=== PATIENT | male | born 1960 | race Caucasian/White ===

== ENCOUNTER → 2020-07-05 11:03 | Outpatient (CLI) | payer BC, SELFPAY ==
--- NOTE | ~2020-07-05 | MR_ITS ---
EXAMINATION: MR knee RT wo con DATE: 07/05/2020 11:58 INDICATION: Right knee pain TECHNIQUE: Magnetic resonance imaging (MRI) of the right knee was performed without intravenous contr ast. Sequences included coronal PD-weighted FSE, coronal PD-weighted FS FSE, sagittal T2-weighted FS E, sagittal PD-weighted FS FSE and axial PD weighted fat saturated FSE. COMPARISON: None. FINDINGS: Medial compartment: Longitudinal horizontal tear extending to the inferior articular surface at the mid to peripheral thi rd of the posterior horn and body of the medial meniscus. Suggestion of the tear is mildly complex ne ar the posterior root with likely small anterior meniscal flap extending anteriorly from the lateral most posterior horn. Mild chondral surface regularity along the lateral side of the central weightbea ring medial femoral condyle. Lateral compartment: Lateral meniscus is normal. Articular cartilage is normal. Patellofemoral compartment: Deep chondral ulceration with mild subarticular edema at the cephalad aspect of the patellar apical r idge. And extending obliquely from superolateral to inferomedial across the medial patellar facet. Ti ny central subchondral osteophyte along the inferior medial facet. Less severe mild chondral surface irregularity at the lateral patellar facet. Deep chondral fissuring along the inferolateral aspect of the medial trochlea. Ligaments and tendons: Anterior and posterior cruciate ligaments are normal. The medial collateral ligament and fibular tonya ateral ligament complex are normal. Mild tendinopathy at the distal quadriceps tendon. The patellar t endon is normal. The visualized medial and lateral hamstring tendons as well as the iliotibial band a re normal. Fluid: Physiologic amount of fluid in the joint space. No loose osteochondral bodies identified. Trace amoun t fluid in the prepatellar bursa consistent with mild bursitis. Osseous/other: Bone marrow signal is normal aside from the previous noted tiny foci of minimal subarticular edema. N o fracture or pathologic marrow replacing process. There is edema in the superficial suprapatellar fa t pad most prominent medially consistent with fat pad impingement syndrome. IMPRESSION: 1. Longitudinal horizontal tear of the medial meniscal body and posterior horn, potentially complex w ith suggestion of tiny anteriorly displaced meniscal flap arising near the posterior root. 2. Mild medial and patellofemoral osteoarthritis with small regions of moderate grade chondromalacia the medial compartment and more extensive moderate to high-grade chondromalacia in the patellofemoral compartment. 3. Edema in the superficial suprapatellar fat pad consistent with fat pad impingement syndrome. 4. Minimal prepatellar bursitis. Reviewed, dictated and finalized at location A. IMPRESSION: 1. Longitudinal horizontal tear of the medial meniscal body and posterior horn, potentially complex with suggestion of tiny anteriorly displaced meniscal flap arising near the posterior root. 2. Mild medial and patellofemoral osteoarthritis with small regions of moderate grade chondromalacia the medial compartment and more extensive moderate to hig h-grade chondromalacia in the patellofemoral compartment. 3. Edema in the superficial suprapatellar fat pad consistent with fat pad impin gement syndrome. 4. Minimal prepatellar bursitis.
== END ==
PROVIDERS: Visit Provider Nurse Practitioner Family
DX: M71.561 Other bursitis, not elsewhere classified, right knee (principal); S83.241A Other tear of medial meniscus, current injury, right knee, initial encounter; X58.XXXA Exposure to other specified factors, initial encounter; M17.11 Unilateral primary osteoarthritis, right knee
CPT/HCPCS: 73721

== ENCOUNTER 2020-07-16 00:24 | Outpatient (CLI) | payer BC, SELFPAY ==
[2020-07-16 18:28] LABS: SARS-CoV-2 RNA PCR Negative
== END 2020-07-16 00:25 | disposition home or self-care (01) ==
LOC: ANHCOVIDDT 00:25
PROVIDERS: Orthopaedic Surgery; PCP Family Medicine; Visit Provider Orthopaedic Surgery
DX: Z01.812 Encounter for preprocedural laboratory examination (principal); Z20.828 Contact with and (suspected) exposure to other viral communicable diseases
CPT/HCPCS: 87635; C9803; U0003

== ENCOUNTER 2020-07-21 02:07 | Outpatient (CLI) | payer BC, SELFPAY ==
[2020-07-21 16:34] LABS: SARS-CoV-2 RNA PCR Negative
== END 2020-07-21 02:08 | disposition home or self-care (01) ==
LOC: ANHCOVIDDT 02:07
PROVIDERS: PCP Family Medicine; Visit Provider Orthopaedic Surgery
DX: Z01.812 Encounter for preprocedural laboratory examination (principal); Z20.828 Contact with and (suspected) exposure to other viral communicable diseases
CPT/HCPCS: 87635; C9803; U0003

== ENCOUNTER 2020-07-23 01:29 | Day surgery (SDC) | payer BC, SELFPAY ==
[2020-07-14 10:35] VITALS: BMI 28.5
[2020-07-23] VITALS (7 sets, daily range): BP systolic 96–135; BP diastolic 70–89; PULSE 47–69; RESP 12–16; TEMP 36.2–37.1; O2SAT 97–100
--- NOTE | 2020-07-23 07:23 | WPDHPUPDATE1 ---
History and Physical Update Update Date/Time: 07/23/20 07:23 History and Physical has been reviewed, including an updated exam of the patient. There are NO changes in the patient's condition. Risks, benefits, and alternatives have been discussed and questions answered. Patient agrees to proceed with procedure.
[2020-07-23] MEDS: LACTATED RINGERS 1,000 ML 30 ML IV CONT ×2 (12:56→17:33)
[2020-07-23] MEDS: ACETAMINOPHEN 500 MG TABLET 1000 MG PO (12:56)
[2020-07-23] MEDS: CELECOXIB 200 MG CAPSULE PO (12:57)
--- NOTE | 2020-07-23 13:18 | WPDANESEPPF ---
Anes - Initial Pre Proc Eval Procedure: Operation Date: 07/23/20 14:30 Proposed Procedures p Right Knee Arthroscopy, Proceed As Indicated - Navi Hernandez MD Date/Time: 07/23/20 13:18 Surgeon: Navi Hernandez MD Pre Op Diagnosis: right knee medial meniscus tear and chondromylacia Patient Data Age: 59 Gender: M Height: 5 ft 11 in Weight: 92.8 kg Last Vital Signs Temp 37.1 C 07/23/20 12:40 Pulse 65 07/23/20 12:40 Resp 16 07/23/20 12:40 BP 130/81 07/23/20 12:40 Pulse Ox 100 07/23/20 12:40 Allergies Allergy/AdvReac Type Severity Reaction Status Date / Time No Known Allergies Allergy Verified 07/23/20 12:25 Home Medications Medication Instructions Recorded Confirmed Type aspirin 81 mg tablet,delayed 81 mg PO DAILY 06/26/20 07/23/20 History release esomeprazole magnesium 20 mg 20 mg PO DAILY 06/26/20 07/23/20 History tablet,delayed release chlorhexidine gluconate 4 % 1 applic TOPICAL ONCE #237 ml 07/14/20 07/14/20 Rx topical liquid Patient hx anesthesia problems: none Family hx anesthesia problems: none PMFSH Past Medical History Medical History Medial meniscus tear Right knee pain Seasonal allergies Sleep apnea Vision abnormalities Surgical History Surgical History History of arthroscopy of knee History of hand surgery History of repair of anterior cruciate ligament of left knee Family History Family History Grandparent Family history of alcoholism Family history of cardiovascular disease Cerebrovascular accident Family history of hepatitis Father Family history of cardiovascular disease, Onset Age: 44 Acute myocardial infarction, Onset Age: 44 Sibling Family history of kidney disease Family history of Alzheimer's disease Other Hypertension Social History Social History Smoking status: Never smoker Alcohol intake: never Substance use: current Substance use type: marijuana Last use: 07/14/20 Spiritual care concerns: No Anes - Eval Final PreProcedure Day of Procedure 07/23/20 13:18 Patient weight: overweight Heart: regular rate and rhythm Lungs: clear to auscultation Airway: Mallampati scale class II and special considerations poor opening Neurological: alert and oriented Last oral intake: >/= 8 hours ASA classification: III Emergent: no Anesthetic plan: proceed Anesthesia type and monitoring: general LMA and standard monitoring Informed Consent: The patient's anesthetic plan and its attendant risks and benefits were discussed with the patient/family/POA. Questions were solicited and answers provided to the satisfaction of the patient/family/POA.
--- NOTE | 2020-07-23 13:29 | SUR.PREOP ---
Discussed delay with patient. Voices understanding.
--- NOTE | 2020-07-23 13:43 | SUR.PREOP ---
Up to bathroom.
[2020-07-23] MEDS: ceFAZolin 2 GM/D5W 50 ML 2 GM/50 ML BAG IVPB (16:22)
--- NOTE | 2020-07-23 17:31 | PM.PROC ---
Procedure Note - Detailed Date of procedure: 07/23/20 Pre-op diagnosis: right knee medial meniscus tear and chondromylacia Post-op diagnosis: other (medial meniscus tear, lateral meniscus tear, chondromalacia, synovitis) Procedure performed: RIGHT KNEE SCOPE WITH PARTIAL MEDIAL MENISCECTOMY AND MAJOR SYNEVECTOMY Description of procedure: PATIENT WAS TAKEN TO THE OR. THE RIGHT LEG WAS PREPPED AND DRAPED STERILE. TROCARS WERE PLACED IN THE USUAL FASHION. CAMERA WAS INTRODUCED. THERE WAS CHONDROMALACIA TO THE PATELLA FEMORAL JOINT. THERE WAS A LOT OF SYNOVITIS IN ALL COMPARTMENTS. THE MEDIAL COMPARTMENT SHOWED CHONDROMALACIA TO THE MED FEMORAL CONDYLE. A SHAVER WAS USED TO PREFORM A CHONDROPLASTY. THERE WAS A COMPLEX MEDIAL MENISCUS TEAR. THE TEAR EXTENDED FROM THE MENISCAL ROOT TO THE POSTERIOR HORN MAIN BODY. THE TEAR WAS RESECTED WITH A BITER AND A SHAVER DOWN TO A SMOOTH BASE. ABOUT 15% OF THE MENISCUS WAS REMOVED. THE ACL WAS INTACT. THE LATERAL MENISCUS WAS NOT TORN. THE LATERAL COMPARTMENT HAD NO SIGNIFICANT CHONDROMALACIA. THE PATELLO FEMORAL JOINT UNDERWENT CHONDROPLASTY. THERE WAS GRADE 3 CHONDROMALACIA IN MOST OF THE TROCHLEA AND PART OF THE PATELLA. SYNOVECTOMY WAS PREFORMED IN THE SUPERIOR MEDIAL COMPARTMENT AND IN HOFFA'S SYNOVIUM. THE PATELLA TRACKED NORMALLY WITHIN THE TROCHLEA. THE WOUNDS WERE APPROXIMATED WITH 4.0 NYLON. STERILE DRESSING WAS APPLIED. PATIENT WAS EXTUBATED. Anesthesia: GLMA Surgeon: Navi Hernandez MD Estimated blood loss (mL): 5 Complications: No immediate complications Condition: stable Disposition: PACU
== END 2020-07-23 18:55 | disposition home or self-care (01) ==
PROVIDERS: PCP Family Medicine; Visit Provider Orthopaedic Surgery
PROC: (CPT 29870; principal; 2020-07-23 14:30)
DX: M23.321 Other meniscus derangements, posterior horn of medial meniscus, right knee (principal); M65.861 Other synovitis and tenosynovitis, right lower leg; M94.261 Chondromalacia, right knee
CPT/HCPCS: 29881; 29876; A9270; J0690; J1100; J2250; J2405; J2704; J3010; J7120

== ENCOUNTER → 2021-04-13 02:53 | Outpatient (CLI) | payer BC, SELFPAY ==
[2021-04-13 17:43] LABS: SARS-CoV-2 RNA PCR Negative
== END ==
PROVIDERS: PCP Family Medicine; Visit Provider Internal Medicine Gastroenterology
DX: Z01.812 Encounter for preprocedural laboratory examination (principal); Z20.822 Contact with and (suspected) exposure to COVID-19
CPT/HCPCS: C9803; U0003; U0005

== ENCOUNTER 2021-04-16 00:16 | Day surgery (SDC) | payer BC, SELFPAY ==
[2021-04-02 15:14] VITALS: BMI 29.3
[2021-04-16 07:11] VITALS: BP 119/72; PULSE 76; RESP 18; TEMP 35.9; O2SAT 99
[2021-04-16] MEDS: LACTATED RINGERS 1,000 ML 150 ML IV CONT (07:13)
--- NOTE | 2021-04-16 08:13 | WPDGICN ---
GI Consult Note Consult date/time: 04/16/21 08:13 HPI: Reason for visit colonoscopy. This very pleasant gentleman seen in consultation at the request of the primary physician. Impression: Screening colonoscopy. GERD controlled on medication. Kidney stones. BEN. Recommendation: Colonoscopy. History: This very pleasant gentleman is here for screening colonoscopy. His GI review systems is negative. He has history reflux disease well controlled on medication. Physical examination: General: very pleasant patient in no acute distress. HEENT: Head was normocephalic sclerae is clear mouth without masses neck was supple. Heart: Rate rhythm regular without S3 or S4. Lungs: CTA. Abdomen: Soft with no guarding or rigidity. Bowel sounds were active. Neurologic: Cranial nerves 2 through 12 intact. No focal defects. No clonus. Musculoskeletal system: Revealed no joint tenderness or swelling no muscle atrophy. Extremities: Reveal no significant edema. Skin: Warm and dry with normal turgor. Mental status: intact. Patient is alert and oriented. Review of Systems Review of Systems: All systems reviewed & are unremarkable except as noted in HPI and below PMFSH Past Medical History Medical History (Updated 02/26/21 @ 11:44 by Karla Murray [facility]) Esophagitis Kidney stone (~2017) Medial meniscus tear Overweight (BMI 25.0-29.9) Right knee pain Seasonal allergies Sleep apnea Vision abnormalities Surgical History Surgical History History of arthroscopy of knee History of hand surgery History of repair of anterior cruciate ligament of left knee Family History Family History Grandparent Family history of alcoholism Family history of cardiovascular disease Cerebrovascular accident Family history of hepatitis Father Family history of cardiovascular disease, Onset Age: 44 Acute myocardial infarction, Onset Age: 44 Sibling Family history of kidney disease Family history of Alzheimer's disease Other Hypertension Social History Social History Smoking status: Never smoker Alcohol intake: former Alcohol use details: socially in the past, none for one year Substance use: never Substance use type: marijuana Other substance usage details: marijuana nightly Last use: 07/14/20 Living arrangements: alone Gender identity (if verbalized by the patient): Male Spiritual care concerns: No Meds Home Medications and Allergies Home Medications Medication Instructions Recorded Confirmed Type aspirin 81 mg tablet,delayed 81 mg PO DAILY 06/26/20 04/16/21 History release esomeprazole magnesium 20 mg 20 mg PO DAILY 06/26/20 04/16/21 History tablet,delayed release Allergies Allergy/AdvReac Type Severity Reaction Status Date / Time No Known Allergies Allergy Verified 04/16/21 07:08 Vital Signs Vital Signs - 24 hr 04/16/21 07:11 Temperature 35.9 C L Pulse Rate 76 Respiratory Rate 18 Blood Pressure 119/72 Pulse Oximetry 99
--- NOTE | 2021-04-16 08:29 | WPDANESEPPF ---
Anes - Initial Pre Proc Eval Procedure: Operation Date: 04/16/21 08:30 Proposed Procedures p Screening Colonoscopy - Luis Patel DO Date/Time: 04/16/21 08:29 Surgeon: Luis Patel DO Pre Op Diagnosis: neoplasm screening colon Patient Data Age: 60 Gender: M Height: 5 ft 11 in Weight: 86.6 kg Last Vital Signs Temp 96.7 F L 04/16/21 07:11 Pulse 76 04/16/21 07:11 Resp 18 04/16/21 07:11 BP 119/72 04/16/21 07:11 Pulse Ox 99 04/16/21 07:11 Allergies Allergy/AdvReac Type Severity Reaction Status Date / Time No Known Allergies Allergy Verified 04/16/21 07:08 Home Medications Medication Instructions Recorded Confirmed Type aspirin 81 mg tablet,delayed 81 mg PO DAILY 06/26/20 04/16/21 History release esomeprazole magnesium 20 mg 20 mg PO DAILY 06/26/20 04/16/21 History tablet,delayed release Patient hx anesthesia problems: none Family hx anesthesia problems: none PMFSH Past Medical History Medical History (Updated 02/26/21 @ 11:44 by Karla Murray CMA) Esophagitis Kidney stone (~2017) Medial meniscus tear Overweight (BMI 25.0-29.9) Right knee pain Seasonal allergies Sleep apnea Vision abnormalities Surgical History Surgical History History of arthroscopy of knee History of hand surgery History of repair of anterior cruciate ligament of left knee Family History Family History Grandparent Family history of alcoholism Family history of cardiovascular disease Cerebrovascular accident Family history of hepatitis Father Family history of cardiovascular disease, Onset Age: 44 Acute myocardial infarction, Onset Age: 44 Sibling Family history of kidney disease Family history of Alzheimer's disease Other Hypertension Social History Social History Smoking status: Never smoker Alcohol intake: former Alcohol use details: socially in the past, none for one year Substance use: never Substance use type: marijuana Other substance usage details: marijuana nightly Last use: 07/14/20 Living arrangements: alone Gender identity (if verbalized by the patient): Male Spiritual care concerns: No Anes - Eval Final PreProcedure Day of Procedure 04/16/21 08:29 Patient weight: overweight Heart: regular rate and rhythm Lungs: clear to auscultation Airway: Mallampati scale class II Neurological: alert and oriented Last oral intake: >/= 8 hours ASA classification: III Emergent: no Anesthetic plan: proceed Anesthesia type and monitoring: general GIVS and standard monitoring Informed Consent: The patient's anesthetic plan and its attendant risks and benefits were discussed with the patient/family/POA. Questions were solicited and answers provided to the satisfaction of the patient/family/POA.
[2021-04-16 09:20] VITALS: BP 105/69; PULSE 82; RESP 26; O2SAT 97
[2021-04-16 09:30] VITALS: BP 102/66; PULSE 66; RESP 20; O2SAT 100
[2021-04-16 09:40] VITALS: BP 110/71; PULSE 67; RESP 17; O2SAT 100
== END 2021-04-16 09:49 | disposition home or self-care (01) ==
PROVIDERS: PCP Family Medicine; Visit Provider Internal Medicine Gastroenterology
PROC: 0DJD8ZZ Inspection of Lower Intestinal Tract, Via Natural or Artificial Opening Endoscopic (ICD-10-PCS; CPT 45378; principal; 2021-04-16 08:30)
DX: Z12.11 Encounter for screening for malignant neoplasm of colon (principal); K64.8 Other hemorrhoids; K21.9 Gastro-esophageal reflux disease without esophagitis; G47.33 Obstructive sleep apnea (adult) (pediatric); F12.90 Cannabis use, unspecified, uncomplicated; Z79.82 Long term (current) use of aspirin
CPT/HCPCS: 45378; C9803; J2704; J7120; U0003; U0005

== ENCOUNTER → 2025-03-04 15:33 | Outpatient (REF) | payer MEDICARE, SELFPAY ==
--- OUTSIDE RECORDS SUMMARY | 2025-03-04 16:13 | XMS_ITS | Clinical Summary ---
Author Organization [facility] Address [address] [place] [address] Care Team Providers Care Plastics Nurse Name Role Phone Jacinto Gandara MD Primary Care Provider [phone] Jacinto Gandara MD Unavailable [phone] Lianne Zamora Unavailable Allergies No known active allergies Medications esomeprazole DR (NexIUM) 20 mg capsule Take 1 capsule (20 mg total) by mouth daily before breakfast Active HYDROcodone-cem taminophen (NORCO) 5-325 mg per tabletIndicatio ns:Pain Take 1 tablet by mouth every 4 (four) hours as needed for pain Do not take on an empty stomach, no driving after taking 30 tablet Active Active Problems Problem Noted Date Diagnosed Date Acute lateral meniscus tear of left knee 024 Internal derangement of knee involving posterior horn of lateral meniscus, left 04/23/2024 Assessment & Plan (04/23/2024 4:20 PM CDT): By MRI the patient has a tear of the posterior horn of the lateral meniscus as well. The time of her arthroscopy would want to address both tears. Acute medial meniscus tear of left knee 04/02/20 Assessment & Plan (04/23/2024 4:21 PM CDT): By MRI the patient is found have medial and lateral meniscal tears of his left knee. The ACL graft appears to be intact. He does have a bone bruise but no insufficiency fracture. He does not have end-stage arthritis and does not warrant knee replacement surgery as of yet. I would recommend arthroscopy with partial meniscectomy. The risks of knee arthroscopy include incisional numbness, hypersensitive scar, neurovascular compromise, infection, recurrent tearing, persistent pain due to underlying arthritis, medical and anesthetic risks including and is willing to proceed Assessment & Plan (04/02/2024 3:22 PM CDT): The patient may have developed a medial meniscal tear as he is having mechanical locking of the knee with recurrent effusions sharp stabbing pain. His exam was consistent with a medial meniscal tear. Would recommend obtaining an MRI as he did not get any significant response with the cortisone injection in the treatment of his underlying arthritis. If radiographically the patient only has [id number] degenerative changes of the knee. He does have retained hardware and metal suppression we will be needed for the MRI Traumatic arthropathy of knee 11/17/2015 Overview (02/10/2017): Post-traumatic osteoarthritis of left knee Assessment & Plan (03/15/2024 1:21 PM CDT): The patient is developing moderate degenerative changes of the knee with reactive synovitis clinically. He has no evidence of a septic joint or deep vein thrombosis clinically at this time. After reviewing the treatment options he elected undergo a cortisone injection today to the severity of his symptoms. He tolerated the procedure well. If he develops locking recurrent effusions of the knee further workup with an MRI would be indicated. Osteoarthritis of knee 11/17/2015 Overview (02/10/2017): Primary osteoarthritis of right knee Torn cartilage 10/21/2015 Overview (02/10/2017): Acute meniscal tear of left knee, initial encounter Strain of supraspinatus muscle or tendon 014 Overview (02/10/2017): Strain of supraspinatus muscle AND/OR tendon Partial thickness rotator cuff tear 10/21/2014 Overview (02/10/2017): Partial tear of right subscapularis tendon Fracture of multiple ribs 10/21/2014 Overview (02/10/2017): Ribs, multiple fractures Surgical History Surgery Date Site/Laterality Comments ANTERIOR CRUCIATE LIGAMENT REPAIR ACL repair OTHER SURGICAL HISTORY Right hand reconstruction OTHER SURGICAL HISTORY elbow release HERNIA REPAIR Hernia repair KNEE ARTHROSCOPY 05/18/2024 Left Medical History Medical History Date Comments Arthritis Arthritis; Comme nts: JKD 10/21/2014 - GERD (gastroesophageal reflux disease) Acute medial meniscus tear of left knee Acute medial meniscus tear of left knee Family History Medical History Relation Name Comments Heart attack Brother 1 No Known Problems Brother 2 No Known Problems Brother 3 No Known Problems Brother 4 Heart attack Father Myocardial infa rction; Hyperlipidemia Father High choleste rol; Hypertension Father Hypertension; No Known Problems Mother kidney transplant Sister 1 Frontotemporal dementia Sister 2 No Known Problems Sister 3 No Known Problems Sister 4 No Known Problems Sister 5 Relation Name Status Comments Brother 1 Brother 2 Alive Brother 3 Alive Brother 4 Alive Father Mother Alive Sister 1 Alive Sister 2 Alive Sister 3 Alive Sister 4 Alive Sister 5 Alive Social History Tobacco Use Types Packs/Day Years Used Date Smoking Tobacco: Never Smokeless Tobacco: Never Tobacco Cessation:Counseling Given: Not Answered Alcohol Use Standard Drinks/Week Comments Yes 0 (1 standard drink = 0.6 oz pur e alcohol) AUDIT-C Answer Date Recorded Frequency of Alcohol Consumption Not on file 05/18/2024 Q2: How many drinks containi ng alcohol do you have on a typical day when you are drinking? Patient does not drink Frequency of Binge Drinking Not on file 04/30 Personal Safety Answer Date Recorded Have you ever been in or are you currently in a harmful physical or emotional relationship or is someone making you feel afraid or unsafe? Denies 05/18/2024 Sex and Gender Information Value Date Recorded Sex Assigned at Not on file Legal Sex Male 9:36 AM CDT Gender Identity Not on file Sexual Orientation Not on file Obstetrics History Last Filed Vital Signs Vital Sign Reading Time Taken Comments Blood Pressure 112/78 05/18/2024 11:03 AM CDT Pulse 53 05/18/2024 11:03 AM CDT Temperature 37 C (98.6 F) 05/18/2024 10:00 AM CDT Respiratory Rate 19 05/18/2024 10:45 AM CDT Oxygen Saturation 99% 05/18/2024 11:03 AM CDT Inhaled Oxygen Concentration - - Weight 88.5 kg (195 lb) 05/18/2024 7:04 AM CDT Height 179.1 cm (5' 10.51 ) 06/18/2024 11:07 AM CDT Body Mass Index 27.58 05/18/2024 7:04 AM CDT Plan of Treatment Health Maintenance Due Date Last Done Comments Colon Cancer Screening-Colonoscopy 1959 Depression Screening 1959 Hepatitis C Screening 1959 Prostate Cancer Screening-PSA 1959 DTaP/Tdap/Td Vaccine (1 - Tdap) 1970 Hepatitis B Screening 1977 Pneumococcal vaccine 65+ (1 of 1 - PCV) 2009 Zoster Vaccine (1 of 2) 2009 Covid-19 Vaccine (6 2023-2 5 season) 2024 08/15/2023, 08/18/2022, 04/07/2022, Additional history exists Well Visit 65+ 2024 Fall Risk Assessment 05/18/2025 05/18/2024 Influenza Vaccine (Season Ended) 2025 08/15/2023, 08/20/2022, 08/18/2021, Additional history exists Insurance [facility] Member Subscriber Plan / Payer (Ef fective 2019-Present) Name:Mark Calix Relation to Subscriber:Self Name:Mark Calix Payer ID:[id number] (NA) Type: JM Address: [address] [facility] [id number] [place] [id number] Care Teams Plastics Nurse Relationship Specialty Start Date End Date Jacinto Gandara MD PCP - General 03/15/17 Jacinto Gandara MD 03/15/17 [place] [address] [address] [facility] Associate Orthopedic Surgery 05/18/24
--- OUTSIDE RECORDS SUMMARY | 2025-03-04 16:13 | XMS_ITS | Clinical Summary ---
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
--- OUTSIDE RECORDS SUMMARY | 2025-03-04 16:13 | XMS_ITS | Encounter Summary ---
Author Organization [facility] Address [address] [place] [address] Care Team Providers Care Member Certification Manager Name Role Phone Unavailable Primary Care Provider Unavailabl e Encounter Details Date Type Department Care Team (Late st Contact Info) Description 12/24/2003 Outpatient Historical [facility] ([facility]) [address] 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
--- OUTSIDE RECORDS SUMMARY | 2025-03-04 16:13 | XMS_ITS | Clinical Summary ---
Author Organization [facility] Address [address] [place] [address] Care Team Providers Care Computer Lab Aide Name Role Phone Luis Bar MD Unavailable [phone] Russ Abad MD Primary Care Provider [phone] Source Comments [facility],non-owned Affiliates and Associated Physician Practices is amultiple site organization consisting of ambulatory clinics and hospital sitesin [place], [place], [place] and [place]. This disclosure is being madepursuant to the Care Everywhere program and may not contain all information available regarding this patient. Last updated 18.[facility] Allergies No known active allergies Medications * Be aware that medications may not be up to date on this document. Alwaysverify current medications with the patient. Esomeprazole Magnesium (NEXIUM PO)Indications:Elb ow pain, left,Lateral epicondylitis of elbow Take by mouth. Active Active Problems Problem Noted Date Diagnosed Date Elbow pain, left 06/26/2013 Lateral epicondylitis 06/26/2013 Overview (07/31/2015): Social History Tobacco Use Types Packs/Day Years Used Date Smoking Tobacco: Never Alcohol Use Standard Drinks/Week Comments Not Asked 0 (1 standard drink = 0.6 oz pur e alcohol) Sex and Gender Information Value Date Recorded Sex Assigned at Not on file Legal Sex Male 11:54 AM CDT Gender Identity Not on file Sexual Orientation Not on file Last Filed Vital Signs Vital Sign Reading Time Taken Comments Blood Pressure - - Pulse - - Temperature - - Respiratory Rate - - Oxygen Saturation - - Inhaled Oxygen Concentration - - Weight 90.7 kg (200 lb) 06/26/2013 3:29 PM CDT Height 182.9 cm (6') 06/26/2013 3:29 PM CDT Body Mass Index 27.12 06/26/2013 3:29 PM CDT Plan of Treatment Health Maintenance Due Date Last Done Comments COLOGUARD (AGES 45-75) - COL ON CA SCREENING 1959 COLON MONITORING 1959 COLONOSCOPY - COLON CA SCREENING 1959 CT COLONOGRAPHY - COLON CA SCREENING 1959 Colorectal Cancer Screening 1959 FIT - COLON CA SCREENING 1959 FLEX SIG - COLON CA SCREENING 1959 LIPID TESTING 1959 HIV SCREENING 1974 HEPATITIS C SCREENING 09/06/1977 DTAP/TDAP/TD VACCINES (1 - Tdap) 1978 PNEUMOCOCCAL VACCINE 50+ (1 of 1 - PCV) 2009 ZOSTER VACCINE (1 of 2) 2009 COVID-19 VACCINE (1 - 2023-2 5 season) 2024 DEPRESSION SCREENING 10/31/2024 INFLUENZA VACCINE (Season Ended) 2025 Respiratory Syncytial Virus (RSV) Vaccine Pt: or over 60 yrs (1 - 1-dose 75+ series) 2034 HEPATITIS B VACCINE Aged Out No longe r eligible based on patient's age to complete this topic HIB VACCINE Aged Out No longer eligi ble based on patient's age to complete this topic HPV VACCINE Aged Out No longer eligi ble based on patient's age to complete this topic MENINGOCOCCAL (Group B) VACC INE SHARED DECISION-MAKING Aged Out No longer eligibl e based on patient's age to complete this topic MENINGOCOCCAL GROUPS A/C/Y/W VACCINE Aged Out No longer eligible b ased on patient's age to complete this topic Insurance [employer] Care Teams Computer Lab Aide Relationship Specialty Start Date End Date Russ Abad MD [address] [place] [address] PCP - General Family Medicine 06/26/13 Luis Bar MD Orthopedic Surgery 06/26/13
--- OUTSIDE RECORDS SUMMARY | 2025-03-04 16:13 | XMS_ITS | Encounter Summary ---
Author Organization [facility] Address [address] [place] [address] Care Team Providers Care Administrative Officer Name Role Phone Unavailable Primary Care Provider Unavailabl e Encounter Details Date Type Department Care Team (Late st Contact Info) Description 12/23/2003 Outpatient Historical [facility] Support Serv. (Adt Cardiology-[facility]) [address] 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
--- OUTSIDE RECORDS SUMMARY | 2025-03-04 16:13 | XMS_ITS | Referral Summary ---
Author Organization [facility] Address [address] [place] [address] Care Team Providers Care Wildlife Rehabilitator Name Role Phone Jacinto Gandara MD Primary Care Provider [phone] Jacinto Gandara MD Unavailable [phone] Lianne Zamora Unavailable Allergies No known active [...] arthritis. If radiographically the patient only has [id number] degenerative changes of the knee. He does [...] ribs 10/21/2014 Overview (02/10/2017): Ribs, multiple fractures Social History Tobacco Use Types Packs/Day Years [...] 05/18/2024 7:04 AM CDT Plan of Treatment Not on file Insurance [id number] [facility] Address: [facility] [id number] [place] [address] Care Teams Wildlife Rehabilitator Relationship Specialty Start Date End Date Jacinto Gandara MD PCP - General 03/15/17 Jacinto Gandara MD 03/15/17 [place] [id number] [address] Physician Angiography Nurse Orthopedic Surgery 05/18/24
--- OUTSIDE RECORDS SUMMARY | 2025-03-04 16:13 | XMS_ITS | Encounter Summary ---
Author Organization [facility] Address [address] [place] [address] Care Team Providers Care Butt Presser Name Role Phone Unavailable Primary Care Provider Unavailabl e Encounter Details Date Type Department Care Team (Latest Contact Info) Description 12/23/2003 Inpatient Historical HIS PATIENT IN A BED Isiah Collier MD [facility] [address] [facility] [address] [place] [address] PERICARDIAL DISEASE NOS (Primary Dx) Social History Tobacco Use Types Packs/Day Years Used Date Smoking Tobacco: Never Assessed Sex and Gender Information Value Date Recorded Sex Assigned at Not on file 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
--- OUTSIDE RECORDS SUMMARY | 2025-03-04 16:13 | XMS_ITS | Encounter Summary ---
Author Organization [facility] Address [address] [place] [address] Care Team Providers Care Clamper Name Role Phone Unavailable Primary Care Provider Unavailabl e Encounter Details Date Type Department Care Team (Late st Contact Info) Description 12/23/2003 Outpatient Historical [facility] Support Serv. (Adt Cardiology[facility]) [facility] 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
--- OUTSIDE RECORDS SUMMARY | 2025-03-04 16:13 | XMS_ITS | Encounter Summary ---
Author Organization [facility] Address [address] [place] [address] Care Team Providers Care Supervisor Lump Room Name Role Phone Luis Bar MD Unavailable [phone] Russ Abad MD Primary Care Provider [phone] Encounter Details Date Type Department Care Team (Late st Contact Info) Description 08/06/2013 Therapy Visit EXTERNAL NON-[facility] DEPT Unknown, Provider Social History Tobacco Use Types Packs/Day Years [...] Diagnoses Not on filedocumented in this encounter Care Teams Supervisor Lump Room Relationship Specialty Start Date End Date Russ Abad MD [address] [place] [address] PCP - General Family Medicine 06/26/13 Luis Bar MD Orthopedic Surgery 06/26/13 documented as of this encounter
--- OUTSIDE RECORDS SUMMARY | 2025-03-04 16:13 | XMS_ITS | Clinical Summary ---
Author Organization [facility] Address [address] [address] Phone Care Team Providers Care Hotel Assistant General Manager Name Role Phone Jacinto Gandara MD Primary Care Provider [phone] Social History Tobacco Use Types Packs/Day Years Used Date Smoking Tobacco: Never Assessed Sex and Gender Information Value Date Recorded Sex Assigned at Not on file Legal Sex Male 11:03 PM CDT Gender Identity Not on file Sexual Orientation Not on file Plan of Treatment Health Maintenance Due Date Last Done Comments Hepatitis C Virus (HCV) Screening 1960 TdaP Immunization 1959 Cologuard 2009 Immunochemical Fecal Occult Blood 2009 Pneumococcal Immunization (5 0+ years) (1 of 1 - PCV) 2009 Zoster Immunization (1 of 2) 2009 PSA Discussion 2014 Influenza Immunization (#1) 2024 SARS-COV-2 Immunization ( - season) 2024 Colonoscopy 04/16/2031 04/16/2021 Colorectal Cancer Screening 04/16/2031 Respiratory Syncytial Virus (RSV) Immunization (Adult) (1 - 1-dose 75+ series) 2034 04/16/2021 Hepatitis B Immunization Aged Out No longer eligible based on patient's age to complete this topic Meningococcal Immunization (ACWY) Aged Out No longer eligible based on patient's age to complete this topic Pneumococcal Immunization Combined Aged Out No longer eligible based on patient's age to complete this topic Rotavirus Immunization Aged Out No lo nger eligible based on patient's age to complete this topic Procedures Procedure Name Priority Date/Time Associated Diagnosis Comments COLONOSCOPY Routine 04/16/2021 from Last 3 Months or Most Recently Relevant to Health Maintenance Results * COLONOSCOPY (04/16/2021) Luis Patel DO PROCEDURE/MINOR SURGICAL ORDERA BLES Final Result from Last 3 Months or Most Recently Relevant to Health Maintenance Insurance [facility] Care Teams Hotel Assistant General Manager Relationship Specialty Start Date End Date Jacinto Gandara MD [address] [place] [address] [address] [place] [address] PCP - General Family Medicine 03/03/21
== END ==
LOC: ANHLAB 15:33
PROVIDERS: Visit Provider Plastic Surgery
DX: L90.5 Scar conditions and fibrosis of skin (principal); D48.5 Neoplasm of uncertain behavior of skin
CPT/HCPCS: 88305

== ENCOUNTER → 2025-03-18 11:32 | Outpatient (REF) | payer MEDICARE, SELFPAY | LOC: ANHLAB 11:32 | PROVIDERS: PCP Family Medicine; Visit Provider Plastic Surgery | DX: D48.5 Neoplasm of uncertain behavior of skin (principal) | CPT/HCPCS: 88305 ==